=== PATIENT | female | born 1990 ===

== ENCOUNTER 2017-08-19 15:35 | Emergency (ER) | payer OTHER ==
[2017-08-19 16:02] VITALS: BP 114/79; PULSE 78; RESP 16; TEMP 98.4; O2SAT 98
--- NOTE | 2017-08-19 16:21 | ED PDOC ---
HPI: Back Time Seen by Provider: 08/19/17 16:05 Chief Complaint (Nursing): Back Pain Chief Complaint (Provider): Right lower back pain radiating down the right leg History Per: Patient History/Exam Limitations: no limitations Onset/Duration Of Symptoms: Days (7) Current Symptoms Are (Timing): Still Present Quality Of Discomfort: Sharp Additional Complaint(s): No trauma. No similar in the past. Pt did not take anything for pain. Past Medical History Reviewed: Historical Data, Nursing Documentation, Vital Signs Vital Signs: Last Vital Signs Temp 98.4 F 08/19/17 15:58 Pulse 78 08/19/17 15:58 Resp 16 08/19/17 15:58 BP 114/79 08/19/17 15:58 Pulse Ox 98 08/19/17 15:58 - Medical History PMH: No Chronic Diseases - Surgical History Surgical History: No Surg Hx - Family History Family History: States: No Known Family Hx - Living Arrangements Living Arrangements: With Family - Social History Current smoker - smoking cessation education provided: No - Home Medications Home Medications: Ambulatory Orders Medication Instructions Recorded Cyclobenzaprine [Cyclobenzaprine 10 mg PO Q8H PRN #12 tab 08/19/17 HCl] Naproxen [Naprosyn] 500 mg PO BID PRN #20 tablet 08/19/17 - Allergies Allergies/Adverse Reactions: Allergies Allergy/AdvReac Type Severity Reaction Status Date / Time No Known Allergies Allergy Verified 08/19/17 16:01 Review of Systems ROS Statement: Except As Marked, All Systems Reviewed And Found Negative Constitutional: Negative for: Fever, Chills Musculoskeletal: Positive for: Back Pain Physical Exam - Reviewed Nursing Documentation Reviewed: Yes Vital Signs Reviewed: Yes - Physical Exam Appears: Positive for: Well, Non-toxic, No Acute Distress Head Exam: Positive for: ATRAUMATIC, NORMAL INSPECTION, NORMOCEPHALIC Skin: Positive for: Normal Color, Warm, DRY Eye Exam: Positive for: Normal appearance ENT: Positive for: Normal ENT Inspection Neck: Positive for: Normal, Painless ROM Cardiovascular/Chest: Positive for: Regular Rate, Rhythm Respiratory: Positive for: Normal Breath Sounds. Negative for: Accessory Muscle Use, Respiratory Distress Back: Positive for: Normal Inspection, Other (Right SI joint tenderness ). Negative for: L CVA Tenderness, R CVA Tenderness, Vertebral Tenderness Extremity: Positive for: Normal ROM. Negative for: Deformity Neurologic/Psych: Positive for: Alert, Oriented - ECG O2 Sat by Pulse Oximetry: 98 Pulse Ox Interpretation: Normal Medical Decision Making Medical Decision Making: Toradol IM and flexeril PO in ER Pt feels better on re-evaluation at 1740 Disposition - Clinical Impression Clinical Impression: Sciatica - Patient ED Disposition Is Patient to be Admitted: No - Disposition Disposition: Routine/Home Disposition Time: 17:54 Condition: STABLE Prescriptions: Cyclobenzaprine [Cyclobenzaprine HCl] 10 mg PO Q8H PRN #12 tab PRN Reason: Muscle Spasm Naproxen [Naprosyn] 500 mg PO BID PRN #20 tablet PRN Reason: Pain Instructions: Sciatica (DC) Forms: [facility] ([place]) Print Language: SLOV[place]
== END 2017-08-19 19:38 | disposition home or self-care (01) ==
LOC: H.ER 15:35
DX: M54.31 Sciatica, right side (principal)
CPT/HCPCS: 81025; 96372; 99282; J1885